=== PATIENT | female | born 2000 | race Hispanic/Latino ===

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

== ENCOUNTER 2021-03-08 17:22 | Emergency (ER) | payer OTHER ==
[2021-03-08] MEDS ORDERED: Acetaminophen 500 MG TAB ONE (19:04)
[2021-03-08] MEDS ORDERED: Ketorolac Tromethamine 30 MG/ML VIAL ONE (19:04)
== END 2021-03-08 19:55 | disposition home or self-care (01) ==
LOC: ERS 17:22
DX: M54.50 Low back pain, unspecified (principal)
CPT/HCPCS: 96372; 99283; J1885